=== PATIENT | female | born 1980 | race Caucasian/White ===

== ENCOUNTER → 2016-09-22 | Outpatient (CLI) | payer MEDICAID ==
[~2016-09-22] MED LIST: CITA-50 PO; HYDR-4246 PO; LAMO200T PO; LEVO750T20 PO; LINA145C PO; METR500T PO; NAPR500T PO; NORG1TAB12 PO; PRED20TA PO; PROP20TA7 PO; SALINE FLUSH 10ml SYRINGE ONE; SINCALIDE 5 MCG/VIAL IJ ONE; SODIUM CHLORIDE (Bacteriostatic) 30ml VIAL ONE; TRAZ150T43 PO
--- NOTE | 2016-09-22 09:21 | DI ---
Indication: ITS.REASON: R10.11 RUQ PAIN PROCEDURE: NM HEPATOBIL/EF: Encounter: Initial Comparison: CT abdomen and pelvis dated August 20, 2016 Technique: 6.3 mCi of Tc-99m mebrofenin was injected intravenously. At approximately 60 minutes following this administration, 1.8 mcg of Kinevac was administered intravenously. Anterior planar images were obtained and a time/activity curve was calculated. FINDINGS: Radiotracer uptake is seen homogenously within the liver. There is normal clearance of radiotracer from the blood pool. The common bile duct is visualized at approximately 7 minutes. The gallbladder is visualized by 12 minutes, and radiotracer is excreted into the small bowel. There is no evidence of radiotracer outside the biliary or gastrointestinal tract. The gallbladder ejection fraction is normal at 89%. IMPRESSION: 1. Gallbladder visualization excluding acute cholecystitis. 2. Normal gallbladder ejection fraction of 89%, excluding biliary dyskinesia. .
== END ==
LOC: IMA 06:48
PROVIDERS: ATTEND Family Medicine
DX: R10.11 Right upper quadrant pain (principal)
CPT/HCPCS: 78227; A9537; J2805

== ENCOUNTER 2016-11-04 09:40 | Emergency (ER) | payer MEDICAID ==
[~2016-11-04] VITALS: Ht 160 cm; Wt 92.0 kg
[~2016-11-04 09:40] MED LIST changes: -SALINE FLUSH 10ml SYRINGE ONE; -SINCALIDE 5 MCG/VIAL IJ ONE; -SODIUM CHLORIDE (Bacteriostatic) 30ml VIAL ONE
[2016-11-04 09:48] VITALS: Ht 160 cm; Wt 92.0 kg
--- NOTE | 2016-11-04 10:03 | ERPDOC ---
Departure Disposition Decision Date: November 04, 2016 Disposition Decision Time: 10:09 Disposition: 01 DISCHARGED HOME, SELF-CARE Impression Impression Impression: Primary Impression: Pharyngitis Pharyngitis/tonsillitis etiology: unspecified etiology Qualified Codes: J02.9 - Acute pharyngitis, unspecified Severity: Mild Condition: Improved Seen By: Physician only Referrals: DIID GARCIA MD (PCP) 2 Days Patient Instructions: Pharyngitis (ED) Problems/Meds/Labs Reviewed?: Yes Medications reviewed and manag: Yes Follow up care ordered?: Yes Mental Status: Alert, Oriented HPI - General Medical General Chief Complaint: Throat Pain/Injury Stated Complaint: SORE THROAT Time Seen by Provider: 09:49 Source: patient Exam Limitations: no limitations HPI - General Medical Initial Comments 36-year-old female presents to the emergency department with a chief complaint of a sore throat. Patient noted onset of symptoms earlier this week. Symptoms have been persistent in a gradual manner since onset. She notes a dull pain that is rated at 3/10 which increases with swallowing. No radiation of symptoms. She has not taken any intervention for the discomfort prior to presentation to the emergency department. This is a typical sore throat for the patient. No other complaints or associated symptoms. Occurred At: home Onset: Gradual Allergies: Coded Allergies: tramadol HCl (Verified Adverse Reaction, Intermediate, migraine headaches , 11/04/16) Vanilla (Verified Adverse Reaction, Unknown, MIGRAINE, 11/04/16) Past History Past Medical History Hx Echocardiogram: No GI: IBS Female: kidney stones Neurological: migraines Psychological: anxiety, bipolar, depression Surgical History Reproductive/: Family History Family PMH: FOUND: diabetes, hypertension Vaccines Hx Influenza Vaccination: Yes (2015) Hx Pneumococcal Vaccination: No Hx Tetanus Diptheria: No Hx Tetanus, Diptheria, Pertuss: Yes (2009) Social History Smoking Status: Never smoker Does patient use chewing tobac: No Second Hand Exposure: No Substance Use Type: does not use Substance last used: unknown Alcohol Intake: none Housing: house Review of Systems Constitutional Constitutional: DENIES: chills, fever Eyes General: DENIES: erythema, exudate Lids/Accessories: DENIES: erythema, swelling Vision: DENIES: acuity, blurring ENMT Ears: DENIES: drainage, erythema Hearing: DENIES: hearing loss Balance: DENIES: ataxia, falling to one side Sinuses: DENIES: congestion, pain Nose: DENIES: nosebleeds, pain Mouth/Throat: painful swallowing, sore throat, DENIES: drooling Teeth: DENIES: pain Jaw: DENIES: pain Cardiovascular Cardiac: DENIES: chest pain, dyspnea on exertion Rhythm/Rate: DENIES: irregular beat, palpitations Vascular: DENIES: pedal edema, unilateral swelling Pulmonary Respiratory: DENIES: cough, dyspnea, pleuritic chest pain, sputum GI Upper Abdomen: DENIES: nausea, pain, vomiting Lower Abdomen: DENIES: diarrhea, pain General: DENIES: dysuria, frequency, urgency Musculoskeletal General: DENIES: joint pain, tenderness Neurological General: DENIES: change in strength, headache, numbness, weakness Psychiatric Psychiatric: DENIES: emotional instability, suicidal ideation/attempt Endocrine Endocrine: DENIES: polydipsia, polyphagia Hematologic/Lymphatic Hematologic/Lymphatic: DENIES: frequent nosebleeds, lymphadenopathy Allergic/Immunological Allergic/Immunoligical: DENIES: allergic reactions, hives Physical Exam General General Nourishment: well nourished, well developed, appears stated age, no acute distress, adult General Body Habitus: well groomed Vitals and Pain First Documented Vital Signs Date Time Temp Pulse Resp B/P Pulse Ox O2 Delivery O2 Flow Rate FiO2 11/04/16 09:48 98.1 79 19 117/67 95 Room Air Weight: Kilograms: 92.000 Height (feet): 5 Height (inches): 3.00 Triage Pain Scale: RN VS reviewed by Provider: Yes Normal Exams: Head: Normocephalic w/o trauma Eyes: Pupils are PERRLA w/ EOMI, No scleral icterus, irritation, or foreign bodies noted ENMT: No facial trauma, nasal exudates, pharyngeal erythema, or exudates are noted Dental: No fractured, loose, or missing teeth noted Neck: Full range of motion, without adenopathy, JVD, bruits or thyromegaly Chest/Resp: Clear all lerma, with good airflow, and symmetry bilaterally CV: Regular rate and rhythm, without murmur or gallop, Pulses 2+ all extremities, capillary refill, <2 seconds all ext., no pedal edema noted Abdomen: Bowel sounds positive, soft, non-tender, non-distended, no hepatosplenomegaly, masses or bruits noted Lymphatic: No lymphadenopathy, or lymphedema noted Musculoskeletal: No tenderness, or deformity noted, good range of motion, all extremities Integumentary: No rashes, hives, or bruising noted, hair and nails, without abnormality Neurologic: Patient is alert, and oriented, cranial nerves, motor/sensory/ cerebellar, exams w/o gross deficits, to observation Psychiatric: Patient exhibits, appropriate attention, emotion and affect ENMT (brief) Comments Throat - mild pharyngeal erythema. Uvula midline. Voice normal. Handling secretions without difficulty. No tonsillar exudate. No sign of abscess. Differential Diagnoses Considering: Metabolic, Other (pharyngitis / viral syndrome / strep pharyngitis ) Progress Results/Orders Orders Procedure Category Date Status Time Amoxicillin (Amoxil) PHA 11/04/16 Complete 10:15 Naproxen (Naprosyn PHA 11/04/16 Complete 500mg) 10:15 Medications Current ED Medications Amoxicillin (Amoxil) 875 mg O ONCE PO Last administered on 11/04/16 10:13; Start 11/04/16 at 10:15; Stop 11/04/16 at 10:16; Status DC Naproxen (NAPROSYN 500mg) 500 mg O ONCE PO Last administered on 11/04/16t 10: 18; Start 11/04/16 at 10:15; Stop 11/04/16 at 10:16; Status DC Progress Progress Patient is given amoxicillin 875 mg by mouth times one. Patient is given Naprosyn 500 mg by mouth 1 with improvement of symptoms. She is discharged home in improved condition. Patient is to follow up as instructed. Patient is to return to the emergency Department if her condition worsens or changes in any manner. Patient is in agreement with the current plan of management. Patient is to follow up as instructed. Patient and family are in agreement with the current plan of management. Prescriptions for amoxicillin and Naprosyn are provided. ADAM MOLINA DO November 04, 2016 10:03
[2016-11-04] MEDS ORDERED: NAPR500T PO (10:10)
[2016-11-04] MEDS ORDERED: AMOX875T2 PO (10:10)
[2016-11-04] MEDS ORDERED: NAPROXEN 500 MG TABLET PO ONE (10:15)
[2016-11-04] MEDS ORDERED: AMOXICILLIN 875 MG TABLET PO ONE (10:15)
[2016-11-04] MEDS ORDERED: NORG1TAB12 PO (10:18)
[2016-11-04 10:19] VITALS: BP 117/67; PULSE 79; RESP 19; TEMP 98.1; O2SAT 95
[2016-11-04] MEDS ORDERED: TRAZ-173 PO (10:19)
== END 2016-11-04 10:19 | disposition home or self-care (01) ==
LOC: ED 09:40
DX: J02.9 Acute pharyngitis, unspecified (principal)